=== PATIENT | female | born 1935 | race American Indian/Alaskan Native ===

== ENCOUNTER 2018-05-03 10:21 | Day surgery (SDC) | payer MEDICARE ==
[2018-04-28 12:38] VITALS: BMI 24.0
[2018-05-03] MEDS ORDERED: Midazolam 2 MG/2 ML VIAL ONE (12:34)
[2018-05-03] MEDS ORDERED: Propofol 10 mg/ml Inj (20 ML) ONE (12:34)
[2018-05-03] MEDS ORDERED: ceFAZolin IV 1 gm in Dextrose 1 GM/50 ML BAG IVPB ONE (12:50)
[2018-05-03] MEDS ORDERED: HYDROmorphone 0.5 mg/0.5 ml ISec IVP PRN (13:05)
[2018-05-03] MEDS ORDERED: Atropine 0.4 mg/ml Inj (1 mL) ONE (13:09)
[2018-05-03] MEDS ORDERED: Oxycodone/Acetaminophen 5/325 mg Tab PO PRN (13:36)
[2018-05-03 13:46] VITALS: O2SAT 100
[2018-05-03 15:45] VITALS: BP 112/76; PULSE 66; RESP 18; TEMP 97
--- NOTE | 2018-05-04 00:58 | OP ---
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 PROCEDURE PERFORMED: Wide and deep excision (radical resection) of 5 cm hemangioma and soft tissue tumors of the right and left legs with excision of varicose veins of the right leg. SURGEON: Manuel Douglas MD ANESTHESIA: General. BLOOD LOSS: 40 mL. POSTOPERATIVE CONDITION: Stable. INDICATIONS FOR SURGERY: This is a very healthy 83-year-old female who takes no medication who complains of pain in both legs secondary to varicose veins and two large vascular tumors of both legs. She now will undergo wide deep excision along with excision of varicose veins. DESCRIPTION OF PROCEDURE: The patient was taken to the operating room, general anesthesia administered. Bilateral legs were prepped and draped. Attention was first turned to the right leg where the hemangioma, soft tissue tumor were marked, and a generous elliptical incision was made. It was excised into the fascial layer and removed. Bleeding was controlled using the Bovie. Full-thickness tissue flaps were raised including muscle and fascia. Counter incisions were made and advancement flap closures of 32 sq cm. were performed using multiple layers of Monocryl, subcuticular Monocryl, and glue. The above was basically repeated on the left leg with similar wide excision along with advancement flap closures. Next, stab phlebectomy of varicose vein in the anterior right leg was performed. Wounds were irrigated with saline and simple subcuticular closures with 4-0 Monocryl were performed. The wounds were dressed sterilely. The patient tolerated the procedure well. Returned to recovery room in stable condition. Manuel Douglas MD
== END 2018-05-03 15:49 | disposition home or self-care (01) ==
LOC: EDBD → C.SDS 10:21
PROVIDERS: ATTEND Surgery
DX: I83.813 Varicose veins of bilateral lower extremities with pain (principal); I83.12 Varicose veins of left lower extremity with inflammation; D18.00 Hemangioma unspecified site; I83.11 Varicose veins of right lower extremity with inflammation
CPT/HCPCS: 37735; 88304; J0461; J0690; J2250; J2704; J3010